=== PATIENT | female | born 1955 | race Two or more races ===

== ENCOUNTER 2017-02-16 18:14 | Emergency (ER) | payer SELFPAY ==
[~2017-02-16] VITALS: Ht 165.1 cm; Wt 70.3 kg
[2017-02-16 18:31] VITALS: BP 160/89
[2017-02-16 18:51] LABS: BASOPHILS # (AUTO) 0.1 /CMM (0.0-0.2); BASOPHILS % (AUTO) 1.4 % (0.0-2.0); EOSINOPHILS # (AUTO) 0.1 /CMM (0.0-0.7); EOSINOPHILS % (AUTO) 1.1 % (0.0-6.0); HEMATOCRIT 40 % (33-45); HEMOGLOBIN 13.2 g/dL (11.5-14.8); LYMPHOCYTES # (AUTO) 0.7 /CMM (0.8-4.8); LYMPHOCYTES % (AUTO) 8.4 % (20.0-44.0); MEAN CORPUSCULAR HEMOGLOBIN 29 PG (26.0-33.0); MEAN CORPUSCULAR HGB CONC 34 g/dl (31.0-36.0); MEAN CORPUSCULAR VOLUME 86 fL (82-100); MONOCYTES # (AUTO) 0.6 /CMM (0.1-1.30); MONOCYTES % (AUTO) 6.4 % (2.0-12.0); NEUTROPHILS # (AUTO) 7.1 /CMM (1.8-8.9); NEUTROPHILS % (AUTO) 82.7 % (43.0-81.0); PLATELET COUNT (AUTO) 302 /CMM (150-450); RDW COEFFICIENT OF VARIATION 12.8 (11.5-15.0); WHITE BLOOD COUNT (AUTO) 8.6 K/uL (4.3-11.0)
[2017-02-16] MEDS ORDERED: LORAZEPAM 1 MG TABLET PO ONE (19:00)
[2017-02-16] MEDS ORDERED: ACETAMINOPHEN ES 500 MG TABLET PO ONE (19:00)
[2017-02-16 19:20] LABS: ALANINE AMINOTRANSFERASE 70 U/L (12-78); ALCOHOL, BLOOD < 3 mg/dL (0-0); ALKALINE PHOSPHATASE 112 U/L (46-116); ASPARTATE AMINOTRANSFERASE 45 U/L (15-37); BILIRUBIN,TOTAL 0.6 mg/dL (0.2-1.0); CALCIUM, SERUM 9.4 mg/dL (8.5-10.1); CARBON DIOXIDE 27 mmol/L (21-32); CHLORIDE 101 mmol/L (98-107); CREATININE 0.7 mg/dL (0.6-1.3); GLUCOSE 139 mg/dL (74-106); POTASSIUM 3.6 mmol/L (3.5-5.1); SODIUM SERUM 137 mmol/L (136-145); TOTAL PROTEIN, SERUM 8.3 g/dL (6.4-8.2); UREA NITROGEN, BLOOD 11 mg/dL (7-18)
[2017-02-16] MEDS ORDERED: LORAZEPAM 1 MG TABLET ONE (19:31)
[2017-02-16] MEDS ORDERED: ACETAMINOPHEN ES 500 MG TABLET ONE (19:32)
[2017-02-16 19:34] LABS: ALBUMIN 3.9 g/dL (3.4-5.0); BILIRUBIN,DIRECT 0.1 mg/dL (0.0-0.2)
[2017-02-16 20:37] LABS: APPEARANCE,URINE Clear (CLEAR); BILIRUBIN,URINE Negative (NEGATIVE); BLOOD, URINE Small Ery/uL (NEGATIVE); COLOR,URINE Yellow (YELLOW); KETONES,URINE Negative (NEGATIVE); LEUKOCYTE ESTERASE ,URINE Trace (NEGATIVE); NITRITE, URINE Negative (NEGATIVE); PH,URINE 7.5 (5.0-8.0); PROTEIN,URINE Negative (NEGATIVE); UGLUCOSE Negative (NEGATIVE); UROBILINOGEN,URINE 0.2 EU/dL (0.2)
[2017-02-16] MEDS ORDERED: ONDANSETRON 4 MG TAB.RAPDIS ONE (20:40)
[2017-02-16 20:56] LABS: BACTERIA,URINE 1+ /HPF (None Seen); SQUAMOUS EPITHELIAL CELL,UR Few /HPF (None Seen)
[2017-02-16] MEDS ORDERED: ONDANSETRON 4 MG TAB.RAPDIS SL ONE (21:00)
== END 2017-02-16 20:49 | disposition home or self-care (01) ==
LOC: ER 18:17
DX: M25.511 Pain in right shoulder (principal); F41.9 Anxiety disorder, unspecified; B34.9 Viral infection, unspecified; I10 Essential (primary) hypertension; I70.0 Atherosclerosis of aorta
CPT/HCPCS: 36415; 71010; 73030; 80048; 80076; 80305; 81001; 85025; 87077; 87086; 87186; 93005; 99285; A4606; G0480; Q0162; Z7610; 81000-TC

== ENCOUNTER 2018-03-26 16:39 | Inpatient (IN) | payer MEDICAID ==
[~2018-03-26] VITALS: Ht 165.1 cm; Wt 71.7 kg
--- NOTE | 2018-03-26 17:00 | NUR ---
aaox3, came to er c/o headache, lower back pain, shoulder pain, denies recent fall or injury. rr is even and unlabored with nad noted. skin is warm and dry. Awaiting md for eval.
[2018-03-26 17:16] LABS: BASOPHILS % (AUTO) 0.4 % (0.0-2.0); EOSINOPHILS % (AUTO) 1.4 % (0.0-6.0); HEMATOCRIT 39 % (33-45); LYMPHOCYTES # (AUTO) 1.6 /CMM (0.8-4.8); LYMPHOCYTES % (AUTO) 25.6 % (20.0-44.0); MEAN CORPUSCULAR HGB CONC 34 g/dl (31.0-36.0); MEAN CORPUSCULAR VOLUME 87 fL (82-100); MONOCYTES # (AUTO) 0.4 /CMM (0.1-1.30); MONOCYTES % (AUTO) 6.1 % (2.0-12.0); NEUTROPHILS # (AUTO) 4.1 /CMM (1.8-8.9); NEUTROPHILS % (AUTO) 66.5 % (43.0-81.0); PLATELET COUNT (AUTO) 290 /CMM (150-450); RED BLOOD CELL COUNT(AUTO) 4.42 MIL/uL (4.0-5.2); WHITE BLOOD COUNT (AUTO) 6.1 K/uL (4.3-11.0)
[2018-03-26] MEDS ORDERED: NITROGLYCERIN 0.4 MG/TAB BOTTLE ONE (17:18)
[2018-03-26] MEDS ORDERED: ASPIRIN 325 MG TABLET ONE (17:18)
[2018-03-26 17:26] LABS: CALCIUM, SERUM 9.1 mg/dL (8.5-10.1); CARBON DIOXIDE 30 mmol/L (21-32); CHLORIDE 102 mmol/L (98-107); CREATININE 0.7 mg/dL (0.6-1.3); GLUCOSE 157 mg/dL (74-106); POTASSIUM 2.9 mmol/L (3.5-5.1); SODIUM SERUM 140 mmol/L (136-145); UREA NITROGEN, BLOOD 16 mg/dL (7-18)
--- NOTE | 2018-03-26 17:27 | NUR ---
2nd dose of nitro 0.4mg SL given [id number].
--- NOTE | 2018-03-26 17:27 | NUR ---
Patient states that the nitro helped the pain from 8/10 to 6/10.
[2018-03-26] MEDS ORDERED: POTASSIUM CHLORIDE 20 MEQ TAB.PRT.SR PO ONE ×2 (17:30→17:35)
[2018-03-26] MEDS ORDERED: ASPIRIN 325 MG TABLET PO ONE (17:30)
[2018-03-26] MEDS ORDERED: NITROGLYCERIN 0.4 MG/TAB BOTTLE SL ONE (17:30)
[2018-03-26 17:32] LABS: ALANINE AMINOTRANSFERASE 25 U/L (12-78); ALBUMIN 3.5 g/dL (3.4-5.0); ALKALINE PHOSPHATASE 101 U/L (46-116); ASPARTATE AMINOTRANSFERASE 18 U/L (15-37); BILIRUBIN,DIRECT 0.1 mg/dL (0.0-0.2); BILIRUBIN,TOTAL 0.6 mg/dL (0.2-1.0); TOTAL PROTEIN, SERUM 7.5 g/dL (6.4-8.2)
[2018-03-26 17:57] LABS: D-DIMER 0.45 mg/L(FEU (0.17-0.50)
[2018-03-26] MEDS ORDERED: HYDR25TA4 PO (18:15)
[2018-03-26] MEDS ORDERED: ASPI-1152 PO (18:15)
[2018-03-26] MEDS ORDERED: LISI10TA5 PO (18:15)
--- NOTE | 2018-03-26 18:28 | NUR ---
ADMIT TO 103 TELE DX CHEST PAIN
--- NOTE | 2018-03-26 18:43 | NUR ---
Report given to VALARIE Sotomayor for [facility] Tele 103
--- NOTE | 2018-03-26 18:55 | NUR ---
Report given to VALARIE Ruiz for [facility].
[2018-03-26] MEDS ORDERED: NITROGLYCERIN PACKET 1 GM PACKET ONE (19:21)
[2018-03-26] MEDS ORDERED: NITROGLYCERIN PACKET 1 GM PACKET TOP ONE (19:30)
[2018-03-26 20:00] VITALS: BP 133/77
--- NOTE | 2018-03-26 20:05 | NUR ---
rn notes Received patient awake on a strectcher from ER accompanied by 2 staff. No distress noted. Breathing even and unlabored. Room air well tolerated. Alert and oriented x 4. Verbally able to communicate needs. No complaint of pain or discomfort. Ambulatory. Vital signs WNL. Kept clean and dry. Will continue to monitor.
[2018-03-26] MEDS ORDERED: ENOXAPARIN SODIUM 40 MG/0.4 ML DISP.SYRIN SQ SCH (23:00)
[2018-03-26] MEDS ORDERED: NAPROXEN 500 MG TABLET PO PRN (23:00)
[2018-03-26] MEDS ORDERED: Z GUARD REMEDY 2 OZ OINT TP PRN (23:00)
[2018-03-26] MEDS ORDERED: ZOLPIDEM TARTRATE 5 MG TABLET PO PRN (23:00)
[2018-03-26] MEDS ORDERED: ONDANSETRON HCL/PF 4 MG/2 ML VIAL IVP PRN (23:00)
[2018-03-26] MEDS ORDERED: ACETAMINOPHEN 325 MG TABLET PO PRN (23:00)
[2018-03-27] VITALS: BP_SYST 115; BP_SYST 133; BP_DIAS 68; BP_DIAS 77
[2018-03-27 00:23] VITALS: BP 133/77
[2018-03-27 04:00] VITALS: BP 112/63
[2018-03-27 06:02] LABS: BASOPHILS % (AUTO) 0.4 % (0.0-2.0); EOSINOPHILS % (AUTO) 2.3 % (0.0-6.0); HEMATOCRIT 37 % (33-45); HEMOGLOBIN 12.6 g/dL (11.5-14.8); LYMPHOCYTES # (AUTO) 1.7 /CMM (0.8-4.8); MEAN CORPUSCULAR HGB CONC 35 g/dl (31.0-36.0); MEAN CORPUSCULAR VOLUME 87 fL (82-100); MONOCYTES # (AUTO) 0.4 /CMM (0.1-1.30); MONOCYTES % (AUTO) 6.9 % (2.0-12.0); NEUTROPHILS % (AUTO) 58.4 % (43.0-81.0); PLATELET COUNT (AUTO) 275 /CMM (150-450); RED BLOOD CELL COUNT(AUTO) 4.21 MIL/uL (4.0-5.2); WHITE BLOOD COUNT (AUTO) 5.2 K/uL (4.3-11.0)
[2018-03-27 06:19] LABS: ALBUMIN 3.5 g/dL (3.4-5.0); BILIRUBIN,TOTAL 0.6 mg/dL (0.2-1.0); CALCIUM, SERUM 8.9 mg/dL (8.5-10.1); CREATININE 0.6 mg/dL (0.6-1.3); MAGNESIUM 2.1 mg/dL (1.8-2.4); PHOSPHORUS 4.7 mg/dL (2.5-4.9); POTASSIUM 2.9 mmol/L (3.5-5.1); TOTAL PROTEIN, SERUM 7.5 g/dL (6.4-8.2)
[2018-03-27 06:23] LABS: THYROID STIMULATING HORMONE 2.009 uIU/mL (0.358-3.74)
--- NOTE | 2018-03-27 07:30 | NUR ---
RN NOTES RECEIVED PATIENT IN BED ASLEEP WITH BREATHING NORMAL, EVEN AND UNLABORED. ON ROOM AIR. NO SOB NOTED. NO ACUTE DISTRESS NOTED. AFEBRILE. TELE MONITOR REVEALS SR, HR=80. IV LAC IS PATENT AND INTACT. KEPT CLEAN, DRY AND COMFORTABLE. ALL NEEDS ATTENDED. SAFETY MEASURE OBSERVED. CALL LIGHT WITH IN REACH. WILL CONT TO MONITOR.
[2018-03-27 08:00] VITALS: BP_SYST 127; BP_DIAS 64; BP_DIAS 94
[2018-03-27] MEDS ORDERED: ASPIRIN EC 81 MG TABLET.DR PO SCH (09:00)
[2018-03-27] MEDS ORDERED: LISINOPRIL (10MG) 10 MG TABLET PO SCH (09:00)
[2018-03-27 09:07] VITALS: BP 127/64
[2018-03-27] MEDS: POTASSIUM CHLORIDE 20 MEQ TAB.PRT.SR PO SCH ×3 (10:53→12:45)
[2018-03-27] MEDS ORDERED: POTASSIUM CHLORIDE 20 MEQ TAB.PRT.SR PO ONE (14:30)
--- NOTE | 2018-03-27 15:10 | NUR ---
RN NOTES PATIENT DISCHARGED IN STABLE CONDITION WITH BREATHING NORMAL, EVEN AND UNLABORED. NO SOB NOTED. NO ACUTE DISTRESS NOTED. DISCHARGE INSTRUCTION GIVEN WITH FEEDBACK, UNDERSTOOD WELL. IV HEPLOCK REMOVED. ALL NEEDS ATTENDED. PATIENT LEFT IN STABLE CONDITION.
[2018-03-27] MEDS ORDERED: ENOXAPARIN SODIUM 40 MG/0.4 ML DISP.SYRIN SQ SCH (21:00)
== END 2018-03-27 15:10 | disposition home or self-care (01) | DRG 243 ==
LOC: ER 16:41 → TELE1 19:37 → MEDSG1 03-27 09:46
PROVIDERS: ADMIT Nurse Practitioner Acute Care; ATTEND Internal Medicine
DX: K21.9 Gastro-esophageal reflux disease without esophagitis (principal); E87.6 Hypokalemia; I10 Essential (primary) hypertension; T50.2X5A Adverse effect of carbonic-anhydrase inhibitors, benzothiadiazides and other diuretics, initial encounter; Y92.009 Unspecified place in unspecified non-institutional (private) residence as the place of occurrence of the external cause; Z79.82 Long term (current) use of aspirin
CPT/HCPCS: 36415; 71045-TC; 80048-TC; 80053-TC; 80061-TC; 80076-TC; 83735-TC; 84100-TC; 84443-TC; 84484-TC; 85025-TC; 85378-TC; 85730-TC; 87081-TC; 93307-TC; G0378; J1650

== ENCOUNTER 2018-06-02 11:40 | Emergency (ER) | payer MEDICAID ==
[~2018-06-02] VITALS: Ht 165.1 cm; Wt 71.7 kg
[~2018-06-02 11:40] MED LIST: ASPI-1152 PO; HYDR25TA4 PO; LISI10TA5 PO
[2018-06-02 12:21] VITALS: BP 118/72
[2018-06-02] MEDS ORDERED: METOCLOPRAMIDE HCL 10 MG/2 ML VIAL IV ONE (12:30)
[2018-06-02] MEDS ORDERED: IV NS 0.9% 1,000 ML BAG IV ONE (12:30)
[2018-06-02] MEDS ORDERED: diphenhydrAMINE HCL 50 MG/ML VIAL IV ONE (12:30)
[2018-06-02] MEDS ORDERED: KETOROLAC TROMETHAMINE INJ 30 MG/ML VIAL IV ONE (12:30)
[2018-06-02] MEDS ORDERED: diphenhydrAMINE HCL 50 MG/ML VIAL ONE (12:52)
[2018-06-02] MEDS ORDERED: KETOROLAC TROMETHAMINE INJ 30 MG/ML VIAL ONE (12:53)
[2018-06-02] MEDS ORDERED: METOCLOPRAMIDE HCL 10 MG/2 ML VIAL ONE (12:53)
--- NOTE | 2018-06-02 13:30 | NUR ---
Pt states "feel better" Declined Benadyl "Im driving home"- updated with plan of care
--- NOTE | 2018-06-02 14:03 | NUR ---
for discharge- Aftercare instructions given home ambulatory-Stable
== END 2018-06-02 14:02 | disposition home or self-care (01) ==
LOC: ER 11:45
DX: R51 Headache (principal); R20.2 Paresthesia of skin; I10 Essential (primary) hypertension; Z79.82 Long term (current) use of aspirin
CPT/HCPCS: 96365; 96375; 99283; J1200; J1885; J2765; J7030

== ENCOUNTER 2018-10-07 19:12 | Emergency (ER) | payer MEDICAID ==
[~2018-10-07] VITALS: Ht 165.1 cm; Wt 68.0 kg
--- NOTE | 2018-10-07 19:30 | NUR ---
PT BIBFAMILY MEMBER C/C ABDOMINAL PAIN WITH N/V/D, LOW GRADE FEVER AND CHILLS SINCE THIS MORNING. PT STATES THAT SHE WAS CLEANING HER DOG AND THEN ATE SOME FOOD AND THINKS THAT COULD BE THE SOURCE. PT AOX4. NAD NOTED. RESP EVEN AND UNLABORED. PT ON MONITOR IN BED 16 WITH FAMILY AT BEDSIDE. WILL CONTINUE TO MONITOR.
[2018-10-07 19:58] LABS: APPEARANCE,URINE Clear (CLEAR); BILIRUBIN,URINE Negative (NEGATIVE); BLOOD, URINE Trace-intact Ery/uL (NEGATIVE); COLOR,URINE Yellow (YELLOW); KETONES,URINE 15 (NEGATIVE); LEUKOCYTE ESTERASE ,URINE Negative (NEGATIVE); NITRITE, URINE Positive (NEGATIVE); PH,URINE 8.5 (5.0-8.0); PROTEIN,URINE Trace mg/dl (NEGATIVE); UGLUCOSE Negative (NEGATIVE)
[2018-10-07] MEDS ORDERED: ONDANSETRON HCL/PF 4 MG/2 ML VIAL IVP ONE (20:00)
[2018-10-07] MEDS ORDERED: MORPHINE SULFATE INJ 2 MG/ML DISP.SYRIN IV ONE (20:00)
[2018-10-07] MEDS ORDERED: IV NS 0.9% 1,000 ML BAG IV ONE (20:00)
[2018-10-07] MEDS ORDERED: ONDANSETRON HCL/PF 4 MG/2 ML VIAL ONE (20:00)
[2018-10-07 20:01] LABS: BASOPHILS % (AUTO) 0.3 % (0.0-2.0); EOSINOPHILS % (AUTO) 0.3 % (0.0-6.0); HEMATOCRIT 38 % (33-45); LYMPHOCYTES # (AUTO) 0.5 /CMM (0.8-4.8); LYMPHOCYTES % (AUTO) 6.9 % (20.0-44.0); MEAN CORPUSCULAR HGB CONC 34 g/dl (31.0-36.0); MEAN CORPUSCULAR VOLUME 87 fL (82-100); MONOCYTES # (AUTO) 0.2 /CMM (0.1-1.30); MONOCYTES % (AUTO) 3.1 % (2.0-12.0); NEUTROPHILS # (AUTO) 6.3 /CMM (1.8-8.9); NEUTROPHILS % (AUTO) 89.4 % (43.0-81.0); PLATELET COUNT (AUTO) 230 /CMM (150-450)
[2018-10-07] MEDS ORDERED: MORPHINE SULFATE INJ 4 MG/ML DISP.SYRIN ONE (20:01)
--- NOTE | 2018-10-07 20:01 | NUR ---
RIGHT AC 18G INITIATED. BLOOD DRAWN AND GIVEN TO LAB.
[2018-10-07 20:10] LABS: CALCIUM, SERUM 8.5 mg/dL (8.5-10.1); CREATININE 0.7 mg/dL (0.6-1.3); POTASSIUM 3.6 mmol/L (3.5-5.1)
[2018-10-07 20:15] LABS: BACTERIA,URINE 2+ /HPF (None Seen); SQUAMOUS EPITHELIAL CELL,UR Few /HPF (None Seen)
[2018-10-07 20:17] LABS: ALBUMIN 3.7 g/dL (3.4-5.0); BILIRUBIN,DIRECT 0.2 mg/dL (0.0-0.2); BILIRUBIN,TOTAL 1.4 mg/dL (0.2-1.0); TOTAL PROTEIN, SERUM 7.6 g/dL (6.4-8.2)
[2018-10-07] MEDS ORDERED: LISINOPRIL (10MG) 10 MG TABLET PO STA (20:40)
[2018-10-07] MEDS ORDERED: CEFTRIAXONE 1GM BAG (ER ONLY) 50 ML IV ONE (20:42)
--- NOTE | 2018-10-07 20:55 | NUR ---
PHLEB AT BEDSIDE FOR BLOOD CULTURES
[2018-10-07] MEDS ORDERED: CEFTRIAXONE 1GM BAG (ER ONLY) 1 GM/50 ML PIGGYBACK IV ONE (21:00)
[2018-10-07 22:46] VITALS: BP 162/82
--- NOTE | 2018-10-07 23:04 | NUR ---
IV removed. Catheter intact and site benign. Pressure and 4x4 applied to site. No bleeding noted.Patient discharged to home in stable condition. Written and verbal after care instructions given. Patient verbalizes understanding of instruction.
== END 2018-10-07 23:38 | disposition home or self-care (01) ==
LOC: ER 19:20
DX: N39.0 Urinary tract infection, site not specified (principal); R11.2 Nausea with vomiting, unspecified; I10 Essential (primary) hypertension; Z79.82 Long term (current) use of aspirin; Z79.899 Other long term (current) drug therapy
CPT/HCPCS: 36415; 76705; 80048; 80076; 81001; 83690; 85025; 87040 ×2; 87077; 87086; 87186; 96361; 96365; 96375; 99284; J0696; J2270; J2405; J7030; 81000-TC

== ENCOUNTER 2019-01-26 23:41 | Emergency (ER) | payer MEDICAID ==
[~2019-01-26] VITALS: Ht 165.1 cm; Wt 68.0 kg
--- NOTE | 2019-01-26 23:42 | NUR ---
PT BIBSELF C/O NONRADIATING R SIDED CP X1 DAY. PT AOX4. PT AMBULATORY WITH STEADY GAIT. DENIES SOB. DENIES N/V. PT IN GOWN IN BED 9 AND ON MONITOR. WILL CONTINUE TO MONITOR.
[2019-01-27] MEDS ORDERED: KETOROLAC TROMETHAMINE INJ 30 MG/ML VIAL IV ONE
[2019-01-27] MEDS ORDERED: ASPIRIN 325 MG TABLET PO ONE
--- NOTE | 2019-01-27 00:01 | NUR ---
BLOOD DRAWN AND GIVEN TO [facility]
[2019-01-27] MEDS ORDERED: KETOROLAC TROMETHAMINE INJ 30 MG/ML VIAL ONE (00:02)
[2019-01-27] MEDS ORDERED: ASPIRIN 325 MG TABLET ONE (00:02)
[2019-01-27 00:04] LABS: BASOPHILS % (AUTO) 0.5 % (0.0-2.0); EOSINOPHILS % (AUTO) 2.2 % (0.0-6.0); HEMATOCRIT 37 % (33-45); HEMOGLOBIN 12.4 g/dL (11.5-14.8); LYMPHOCYTES % (AUTO) 33.8 % (20.0-44.0); MEAN CORPUSCULAR HGB CONC 33 g/dl (31.0-36.0); MEAN CORPUSCULAR VOLUME 88 fL (82-100); MONOCYTES # (AUTO) 0.4 /CMM (0.1-1.30); MONOCYTES % (AUTO) 7.1 % (2.0-12.0); NEUTROPHILS # (AUTO) 3.4 /CMM (1.8-8.9); NEUTROPHILS % (AUTO) 56.4 % (43.0-81.0); PLATELET COUNT (AUTO) 261 /CMM (150-450); RED BLOOD CELL COUNT(AUTO) 4.21 MIL/uL (4.0-5.2)
[2019-01-27 00:17] LABS: CARBON DIOXIDE 28 mmol/L (21-32); CHLORIDE 106 mmol/L (98-107); CREATININE 0.8 mg/dL (0.6-1.3); GLUCOSE 113 mg/dL (74-106); POTASSIUM 3.8 mmol/L (3.5-5.1); SODIUM SERUM 143 mmol/L (136-145); UREA NITROGEN, BLOOD 18 mg/dL (7-18)
[2019-01-27 01:01] VITALS: BP 137/79
== END 2019-01-27 01:19 | disposition home or self-care (01) ==
LOC: ER 23:41
DX: R07.89 Other chest pain (principal); I10 Essential (primary) hypertension; Z79.82 Long term (current) use of aspirin; Z79.899 Other long term (current) drug therapy
CPT/HCPCS: 36415; 71045; 80048; 84484; 85025; 93005; 96374; 99284; J1885

== ENCOUNTER 2019-05-21 06:44 | Emergency (ER) | payer MEDICAID ==
[~2019-05-21] VITALS: Ht 165.1 cm; Wt 68.0 kg
--- NOTE | 2019-05-21 06:55 | NUR ---
PT CAME TO THE ED C/O FEVER, COUGH, HEADAHCE AND SHOULDER PAIN SINCE LAST NIGHT. PT AAOX4, RR EVEN AND UNLABORED ON RA W NAD NOTED. PT CONNECTED TO THE ESTIMATE CLERK AND POX.
--- NOTE | 2019-05-21 06:56 | NUR ---
AWAITING FOR MD DOLL
[2019-05-21] MEDS ORDERED: HYDROCODONE/APAP 10/325MG 1 EA TABLET ONE (07:18)
--- NOTE | 2019-05-21 07:24 | NUR ---
ENDORSEMENT RECEIVED FROM ALLAN SHEPPARD FOR [facility]
[2019-05-21] MEDS ORDERED: HYDROCODONE/APAP 10/325MG 1 EA TABLET PO ONE (07:30)
[2019-05-21 07:36] LABS: BASOPHILS % (AUTO) 0.3 % (0.0-2.0); EOSINOPHILS % (AUTO) 5.9 % (0.0-6.0); HEMATOCRIT 40 % (33-45); HEMOGLOBIN 13.5 g/dL (11.5-14.8); LYMPHOCYTES # (AUTO) 0.9 /CMM (0.8-4.8); LYMPHOCYTES % (AUTO) 15.9 % (20.0-44.0); MEAN CORPUSCULAR HGB CONC 34 g/dl (31.0-36.0); MEAN CORPUSCULAR VOLUME 87 fL (82-100); MONOCYTES # (AUTO) 0.4 /CMM (0.1-1.30); MONOCYTES % (AUTO) 6.8 % (2.0-12.0); NEUTROPHILS % (AUTO) 71.1 % (43.0-81.0); PLATELET COUNT (AUTO) 233 /CMM (150-450); RED BLOOD CELL COUNT(AUTO) 4.56 MIL/uL (4.0-5.2); WHITE BLOOD COUNT (AUTO) 5.6 K/uL (4.3-11.0)
[2019-05-21 07:46] LABS: CALCIUM, SERUM 8.9 mg/dL (8.5-10.1); CARBON DIOXIDE 26 mmol/L (21-32); CHLORIDE 104 mmol/L (98-107); CREATININE 0.7 mg/dL (0.6-1.3); GLUCOSE 129 mg/dL (74-106); POTASSIUM 3.3 mmol/L (3.5-5.1); SODIUM SERUM 139 mmol/L (136-145); UREA NITROGEN, BLOOD 5 mg/dL (7-18)
[2019-05-21 07:59] LABS: B-TYPE NATRIURETIC PEPTIDE 146 PG/ML (0-125)
[2019-05-21] MEDS ORDERED: LISINOPRIL (20MG) 20 MG TABLET PO SCH (09:00)
--- NOTE | 2019-05-21 09:38 | NUR ---
Patient discharged to home in stable condition. Written and verbal after care instructions given. Patient verbalizes understanding of instruction.
[2019-05-21 09:39] VITALS: BP 182/95
== END 2019-05-21 09:39 | disposition home or self-care (01) ==
LOC: ER 06:44
DX: B34.9 Viral infection, unspecified (principal); I16.0 Hypertensive urgency; I10 Essential (primary) hypertension; Z79.899 Other long term (current) drug therapy; Z79.82 Long term (current) use of aspirin
CPT/HCPCS: 36415; 71045-TC; 80048-TC; 83880; 84484-TC; 85025-TC

== ENCOUNTER 2019-05-21 19:36 | Emergency (ER) | payer MEDICAID ==
[~2019-05-21] VITALS: Ht 165.1 cm; Wt 68.0 kg
[2019-05-21 19:36] VITALS: BP 159/77
--- NOTE | 2019-05-21 19:55 | NUR ---
AT BEDSIDE FOR EVAL.
[2019-05-21] MEDS ORDERED: IBUPROFEN 400 MG TABLET ONE (19:57)
--- NOTE | 2019-05-21 19:59 | NUR ---
Patient discharged to home in stable condition. Written and verbal after care instructions given. Patient verbalizes understanding of instruction.
[2019-05-21] MEDS ORDERED: IBUPROFEN 400 MG TABLET PO ONE (20:00)
== END 2019-05-21 20:02 | disposition home or self-care (01) ==
LOC: ER 19:40
DX: B34.9 Viral infection, unspecified (principal); F41.9 Anxiety disorder, unspecified; I10 Essential (primary) hypertension; Z79.82 Long term (current) use of aspirin; Z79.899 Other long term (current) drug therapy

== ENCOUNTER 2021-04-20 00:04 | Emergency (ER) | payer MEDICAID ==
[~2021-04-20] VITALS: Ht 165.1 cm; Wt 68.0 kg
[~2021-04-20 00:04] MED LIST changes: -ASPI-1152 PO; +ASPI-1420 PO; +LISI10TA29 PO; -LISI10TA5 PO
--- NOTE | 2021-04-20 00:45 | NUR ---
BIBS. TO ER BED 2. AAOX4. NOT IN RESP DISTRESS, BREATHING EVEN AND UNLABORED. AMBULATORY. CAME IN FOR SEVERAL CONCERN, FIRST SHE HAS BEEN HAVING PAIN ON THE OUTER CORNER OF THE LEFT EYE. SHE ALSO STATES THAT SHE GET SOB BETWEEN 3-4 AM AND GET AWOKEN. PT ALSO IS NOTED WITH ELEVATED BP BECAUSE SHE IS ALSO REQUESTING TO HAVE MEDICATION REFILL FOR HER LISINOPRIL. WAS AT THE BEDSIDE FOR EVAL. AWATING ORDERD
--- NOTE | 2021-04-20 01:30 | NUR ---
SPECIAL EDUCATION ADMINISTRATOR AT PT'S BEDSIDE
[2021-04-20 01:55] LABS: BASOPHILS % (AUTO) 1.2 % (0.0-2.0); HEMATOCRIT 31 % (33-45); HEMOGLOBIN 10.2 g/dL (11.5-14.8); LYMPHOCYTES # (AUTO) 1.4 K/uL (0.8-4.8); LYMPHOCYTES % (AUTO) 38.6 % (20.0-44.0); MEAN CORPUSCULAR HGB CONC 33 g/dl (31.0-36.0); MEAN CORPUSCULAR VOLUME 94 fL (82-100); MONOCYTES # (AUTO) 0.3 K/uL (0.1-1.30); MONOCYTES % (AUTO) 7.7 % (2.0-12.0); NEUTROPHILS # (AUTO) 1.9 K/uL (1.8-8.9); NEUTROPHILS % (AUTO) 52.5 % (43.0-81.0); PLATELET COUNT (AUTO) 165 K/uL (150-450); RED BLOOD CELL COUNT(AUTO) 3.28 MIL/uL (4.0-5.2); WHITE BLOOD COUNT (AUTO) 3.6 K/uL (4.3-11.0)
--- NOTE | 2021-04-20 02:00 | NUR ---
RFA #18G S/L; PATENT AND INTACT. BLOOD COLLECTED AND SENT TO LAB
[2021-04-20 03:12] LABS: CALCIUM, SERUM 9.4 mg/dL (8.5-10.1); CARBON DIOXIDE 30 mmol/L (21-32); CHLORIDE 103 mmol/L (98-107); CREATININE 0.6 mg/dL (0.6-1.3); GLUCOSE 111 mg/dL (74-106); POTASSIUM 3.5 mmol/L (3.5-5.1); SODIUM SERUM 140 mmol/L (136-145); UREA NITROGEN, BLOOD 15 mg/dL (7-18)
--- NOTE | 2021-04-20 03:36 | NUR ---
CONSULTING PSYCHIATRIST AT PT'S BEDSIDE
[2021-04-20] MEDS ORDERED: HYDR453.3 TP (04:37)
[2021-04-20] MEDS ORDERED: KETOROLAC TROMETHAMINE 15 MG/ML VIAL ONE (04:58)
[2021-04-20] MEDS ORDERED: KETOROLAC TROMETHAMINE INJ 30 MG/ML VIAL IV ONE (05:00)
--- NOTE | 2021-04-20 05:21 | NUR ---
Written and verbal after care instructions given. Patient verbalizes understanding of instruction. PT signed DC paperwork
--- NOTE | 2021-04-20 05:23 | NUR ---
Patient discharged to home in stable condition. Written and verbal after care instructions given. Patient verbalizes understanding of instruction. PT ambulatory with a steady gait. IV removed. Catheter intact and site benign. Pressure and 4x4 applied to site. No bleeding noted.
[2021-04-20 07:13] VITALS: BP 154/83
== END 2021-04-20 05:25 | disposition home or self-care (01) ==
LOC: ER 00:22
DX: R07.89 Other chest pain (principal); I10 Essential (primary) hypertension; Z79.899 Other long term (current) drug therapy; Z79.82 Long term (current) use of aspirin
CPT/HCPCS: 36415; 71045; 80048; 84484 ×2; 85025; 93005; 96374; 99285; J1885